=== PATIENT | male | born 1965 | race Caucasian/White ===

== ENCOUNTER 2017-09-21 03:13 | Emergency (ER) | payer OTHER ==
[~2017-09-21] VITALS: Ht 182.9 cm; Wt 102.5 kg
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
--- NOTE | 2017-09-21 03:14 | NUR ---
ER MD PRUITT AT BEDSIDE FOR EVAL
--- NOTE | 2017-09-21 03:44 | NUR ---
CALLED [facility] AND SPOKE TO [phone]. PRESENTED CASE AND "WE WILL SEND SOMEONE THERE"
[2017-09-21] MEDS ORDERED: ONDANSETRON 4 MG TAB.RAPDIS SL ONE (04:00)
[2017-09-21] MEDS ORDERED: HYDROCODONE/APAP 10/325MG 1 EA TABLET PO ONE (04:00)
[2017-09-21] MEDS ORDERED: HYDROCODONE/APAP 10/325MG 1 EA TABLET ONE (04:30)
[2017-09-21] MEDS ORDERED: ONDANSETRON 4 MG TAB.RAPDIS ONE (04:31)
--- NOTE | 2017-09-21 04:35 | NUR ---
PT P/U BY RADILOLOGY FOR CT HEAD WITHOUT CONTRAST.
--- NOTE | 2017-09-21 07:10 | NUR ---
REPORT REC'D FROM [facility].
--- NOTE | 2017-09-21 07:30 | NUR ---
PT REC'D WATER AND REQUESTED NO VISITORS. ADMITTING WAS NOTIFIED THAT PT DOES NOT WANT VISITORS.
--- NOTE | 2017-09-21 07:50 | NUR ---
Patient discharged to home in stable condition. Written and verbal after care instructions given. Patient verbalizes understanding of instruction AND RX. PT AMBULATED OUT WITH A STEADY GAIT. PT WAS INSTRUCTED NOT TO DRIVE HOME. PT WILL LEAVE HIS CAR IN THE PARKING LOT AND A FRIEND WILL DRIVE IT HOME. PT TO TAKE A UBER HOME.
[2017-09-21 08:00] VITALS: BP 127/79
== END 2017-09-21 08:01 | disposition home or self-care (01) ==
LOC: ER 03:16
DX: S40.022A Contusion of left upper arm, initial encounter (principal); S06.899A Other specified intracranial injury with loss of consciousness of unspecified duration, initial encounter; Z88.0 Allergy status to penicillin; Y04.8XXA Assault by other bodily force, initial encounter; Y93.89 Activity, other specified; Y92.89 Other specified places as the place of occurrence of the external cause; Y99.8 Other external cause status
CPT/HCPCS: 70450; 71100; 73030; 73060; 73090; 73130; 99284; A4606; Q0162; Z7610